=== PATIENT | female | born 1960 | race Caucasian/White ===

== ENCOUNTER 2019-09-05 11:29 | Emergency (ER) | payer OTHER ==
[~2019-09-05] VITALS: Ht 170.2 cm; Wt 141.1 kg
--- NOTE | 2019-09-05 11:35 | NUR ---
MATILDA SMITH FRM FOUR SEASONS C/O DIFFICULT TO AROUSE AND WEAK SINCE THIS MORNING, TO ER BED 8, HOOKED TO [employer]INE[employer] MAIN LINE AND POX, CHANGED TO HOSP GOWN, WARM BLANKET PROVIDED. AWAITING MD LUX.
--- NOTE | 2019-09-05 12:30 | NUR ---
DR DENTON AT BEDSIDE
[2019-09-05 12:45] LABS: BASOPHILS % (AUTO) 0.1 % (0.0-2.0); EOSINOPHILS % (AUTO) 0.5 % (0.0-6.0); HEMATOCRIT 28 % (33-45); HEMOGLOBIN 8.9 g/dL (11.5-14.8); LYMPHOCYTES % (AUTO) 4.4 % (20.0-44.0); MEAN CORPUSCULAR HGB CONC 32 g/dl (31.0-36.0); MEAN CORPUSCULAR VOLUME 91 fL (82-100); MONOCYTES # (AUTO) 0.6 /CMM (0.1-1.30); MONOCYTES % (AUTO) 2.8 % (2.0-12.0); NEUTROPHILS # (AUTO) 20.1 /CMM (1.8-8.9); NEUTROPHILS % (AUTO) 92.2 % (43.0-81.0); PLATELET COUNT (AUTO) 275 /CMM (150-450); RED BLOOD CELL COUNT(AUTO) 3.09 MIL/uL (4.0-5.2); WHITE BLOOD COUNT (AUTO) 21.8 K/uL (4.3-11.0)
[2019-09-05 12:56] LABS: ALBUMIN 2.3 g/dL (3.4-5.0); BILIRUBIN,DIRECT 0.5 mg/dL (0.0-0.2); BILIRUBIN,TOTAL 0.7 mg/dL (0.2-1.0); CALCIUM, SERUM 9.1 mg/dL (8.5-10.1); CREATININE 4.3 mg/dL (0.6-1.3); POTASSIUM 4.6 mmol/L (3.5-5.1); TOTAL PROTEIN, SERUM 6.7 g/dL (6.4-8.2)
[2019-09-05] MEDS ORDERED: IV NS 0.9% 1,000 ML BAG IV ONE (13:00)
--- NOTE | 2019-09-05 13:03 | NUR ---
URINE SAMPLE COLLECTED VIA STRAIGHT CATHETER, SAMPLE SENT TO LAB
--- NOTE | 2019-09-05 13:16 | NUR ---
CARLOS WILLARD CALLED FOR STATUS OF PT. WANTS CLINICALS FAXED TO [phone]. MONTSE PHONE NUMBER [phone].
[2019-09-05 13:32] LABS: APPEARANCE,URINE Clear (CLEAR); BILIRUBIN,URINE Negative (NEGATIVE); BLOOD, URINE Trace-lysed Ery/uL (NEGATIVE); COLOR,URINE Yellow (YELLOW); KETONES,URINE Negative (NEGATIVE); LEUKOCYTE ESTERASE ,URINE Moderate (NEGATIVE); NITRITE, URINE Negative (NEGATIVE); PH,URINE 5.5 (5.0-8.0); PROTEIN,URINE 100 mg/dl (NEGATIVE); UGLUCOSE Negative (NEGATIVE); UROBILINOGEN,URINE 0.2 EU/dL (0.2)
[2019-09-05 13:33] LABS: BACTERIA,URINE None seen /HPF (None Seen); RBC,URINE 0-2 /HPF (0-2); SQUAMOUS EPITHELIAL CELL,UR Few /HPF (None Seen); WBC,URINE 0-2 /HPF (0-3)
--- NOTE | 2019-09-05 13:49 | NUR ---
CARLOS WILLARD CALLED ASKING WHAT TYPE OF TRANPORT WAS NEEDED FOR PT. WENT WITH ALS. CARLOS WILL CALL BACK WITH DOCTOR FOR PEER TO PEER REPORT.
[2019-09-05] MEDS ORDERED: PIPERACILLIN /TAZOBACTAM 3.375 G in IV D5W 50 ML IV ONE (14:30)
[2019-09-05] MEDS ORDERED: PIPERACILLIN /TAZOBACTAM 3.375 G VIAL IV ONE (14:45)
[2019-09-05] MEDS ORDERED: ASCO500C16 PO (14:49)
[2019-09-05] MEDS ORDERED: ACID1TAB12 PO (14:49)
[2019-09-05] MEDS ORDERED: LEVO25TA7 PO (14:49)
[2019-09-05] MEDS ORDERED: FENO145T21 PO (14:49)
[2019-09-05] MEDS ORDERED: METO25TA3 PO (14:49)
[2019-09-05] MEDS ORDERED: MULT-439 PO (14:49)
[2019-09-05] MEDS ORDERED: FLUT16SP16 NS (14:49)
[2019-09-05] MEDS ORDERED: ERGO500040 PO (14:49)
[2019-09-05] MEDS ORDERED: SENN-168 PO (14:49)
[2019-09-05] MEDS ORDERED: ASPI-605 PO (14:49)
[2019-09-05] MEDS ORDERED: AMIN887L PO (14:49)
[2019-09-05] MEDS ORDERED: FERR325T23 BC (14:49)
[2019-09-05] MEDS ORDERED: ACET325T53 PO ×2 (14:49)
[2019-09-05] MEDS ORDERED: INSU100I26 SQ (14:49)
[2019-09-05] MEDS ORDERED: TYL2T PO (14:49)
[2019-09-05] MEDS ORDERED: HYDR-4077 PO (14:49)
[2019-09-05] MEDS ORDERED: INSU100V36 SQ (14:49)
[2019-09-05] MEDS ORDERED: NITR0.4T48 SL (14:49)
[2019-09-05] MEDS ORDERED: BISA10SU61 RC (14:49)
[2019-09-05] MEDS ORDERED: EMPA10TA PO (14:49)
[2019-09-05] MEDS ORDERED: BUME1TAB8 PO (14:49)
[2019-09-05] MEDS ORDERED: SODI45SP6 NS (14:49)
[2019-09-05] MEDS ORDERED: GABA-534 PO (14:49)
[2019-09-05] MEDS ORDERED: MECL-159 PO (14:49)
[2019-09-05] MEDS ORDERED: AMIO200T4 PO (14:49)
[2019-09-05] MEDS ORDERED: ACET1TAB17 PO (14:49)
--- NOTE | 2019-09-05 14:56 | NUR ---
FOLLOWED UP WITH MONTSE LOPEZ. JUST WAITING ON A BED ASSIGNMENT AT [facility].
--- NOTE | 2019-09-05 15:35 | NUR ---
CARLOS WILLARD FROM [facility] CALLED. PT WILL BE GOING TO [facility] BED 202-2 NUMBER FOR REPORT IS [phone]. LAURI IS THE NURSE. ALS AMBULANCE WILL BE ORDERED. MONTSE WILL CALL BACK WITH ETA.
--- NOTE | 2019-09-05 16:04 | NUR ---
REPORT GIVEN TO LAURI MARSHALL OF [facility].
--- NOTE | 2019-09-05 16:09 | NUR ---
CARLOS WILLARD FROM [facility] CALLED. ETA FOR ALS AMBULANCE IS 90 MINUTES.
--- NOTE | 2019-09-05 16:34 | NUR ---
LINED CHANGED AND CLEANED PT
[2019-09-05 18:30] VITALS: BP 152/66
--- NOTE | 2019-09-05 18:33 | NUR ---
Patient picked up by [facility] unit 24 in stable condition. patient will be brought to [facility]. documents and CD handed to EMT. at bedside.
== END 2019-09-05 18:38 | disposition short-term general hospital (02) ==
LOC: ER 11:32
DX: D72.829 Elevated white blood cell count, unspecified (principal); E86.0 Dehydration; R19.7 Diarrhea, unspecified; N17.9 Acute kidney failure, unspecified; E11.22 Type 2 diabetes mellitus with diabetic chronic kidney disease; N18.9 Chronic kidney disease, unspecified; I50.9 Heart failure, unspecified; J44.9 Chronic obstructive pulmonary disease, unspecified; E66.01 Morbid (severe) obesity due to excess calories; Z68.42 Body mass index [BMI] 45.0-49.9, adult; Z89.511 Acquired absence of right leg below knee; Z89.612 Acquired absence of left leg above knee; Z79.899 Other long term (current) drug therapy; Z79.4 Long term (current) use of insulin; Z79.82 Long term (current) use of aspirin
CPT/HCPCS: 36415; 71045; 80048; 80076; 81001; 83605; 83690; 84145; 84484; 85025; 87040 ×2; 93005; 96361; 96365; 99285; J2543 ×2; J7030; J7060; 81000-TC

== ENCOUNTER 2022-03-13 17:05 | Emergency (ER) | payer MEDICARE, OTHER ==
[~2022-03-13] VITALS: Ht 165.1 cm; Wt 121.1 kg
[~2022-03-13 17:05] MED LIST: ACET1TAB17 PO; ACET325T53 PO; ACID1TAB12 PO; AMIN887L PO; AMIO200T5 PO; ASCO500C17 PO; ASPI-605 PO; BISA10SU61 RC; BUME1TAB8 PO; EMPA10TA PO; ERGO500040 PO; FENO145T21 PO; FERR325T23 BC; FLUT16SP16 NS; GABA-534 PO; HYDR-4077 PO; INSU100I26 SQ; INSU100V36 SQ; LEVO25TA7 PO; MECL-159 PO; METO25TA3 PO; MULT-439 PO; NITR0.4T48 SL; SENN-261 PO; SODI45SP6 NS; TYL2T PO
--- NOTE | 2022-03-13 17:15 | NUR ---
RECEIVED PT 61 YRS FEMALE CAME FROM HOME BY GUILLERMO C/O BLEEDING ON AV SOFIA AFTER COMPLETEDHD at home today lt upper arm dressing intact and dry dressing intact and dry
--- NOTE | 2022-03-13 17:20 | NUR ---
AMPOTATION NINFA AND RBRK
--- NOTE | 2022-03-13 17:30 | NUR ---
SEEN BY PROVIDER
--- NOTE | 2022-03-13 17:45 | NUR ---
INSERTED ANGO CATHETER G 20 ON RT HAND BLOOD DROW AND SENT TO LAB
[2022-03-13 18:17] LABS: BASOPHILS # (AUTO) 0.1 K/uL (0.0-0.2); BASOPHILS % (AUTO) 0.9 % (0.0-2.0); EOSINOPHILS % (AUTO) 1.6 % (0.0-6.0); HEMATOCRIT 33 % (33-45); LYMPHOCYTES # (AUTO) 1.3 K/uL (0.8-4.8); LYMPHOCYTES % (AUTO) 14.7 % (20.0-44.0); MEAN CORPUSCULAR HGB CONC 33 g/dl (31.0-36.0); MEAN CORPUSCULAR VOLUME 95 fL (82-100); MONOCYTES # (AUTO) 0.5 K/uL (0.1-1.30); NEUTROPHILS # (AUTO) 6.8 K/uL (1.8-8.9); NEUTROPHILS % (AUTO) 76.8 % (43.0-81.0); PLATELET COUNT (AUTO) 193 K/uL (150-450); RED BLOOD CELL COUNT(AUTO) 3.53 MIL/uL (4.0-5.2); WHITE BLOOD COUNT (AUTO) 8.8 K/uL (4.3-11.0)
[2022-03-13 18:38] LABS: CALCIUM, SERUM 7.7 mg/dL (8.5-10.1); CREATININE 2.7 mg/dL (0.6-1.3); POTASSIUM 4.1 mmol/L (3.5-5.1)
--- NOTE | 2022-03-13 19:18 | NUR ---
NO ACTIVE BLEEDING IN A.V FISTULA GOOD BRITE
--- NOTE | 2022-03-13 19:38 | NUR ---
HAND OFF UNIQUE MARSHALL
--- NOTE | 2022-03-13 19:38 | NUR ---
[facility] ETA:45 MIN
--- NOTE | 2022-03-13 19:50 | NUR ---
IV removed. Catheter intact and site benign. Pressure and 4x4 applied to site. No bleeding noted.
--- NOTE | 2022-03-13 19:58 | NUR ---
PT'S ADDRESS: [id number] [facility] [id number]
--- NOTE | 2022-03-13 20:15 | NUR ---
IV removed. Catheter intact and site benign. Pressure and 4x4 applied to site. No bleeding noted.Patient discharged to home in stable condition. Written and verbal after care instructions given. Patient verbalizes understanding of instruction.
[2022-03-13 20:19] VITALS: BP 110/60
== END 2022-03-13 20:19 | disposition home or self-care (01) ==
LOC: ER 17:07
DX: T82.838A Hemorrhage due to vascular prosthetic devices, implants and grafts, initial encounter (principal); E11.22 Type 2 diabetes mellitus with diabetic chronic kidney disease; N18.9 Chronic kidney disease, unspecified; J44.9 Chronic obstructive pulmonary disease, unspecified; I73.9 Peripheral vascular disease, unspecified
CPT/HCPCS: 36415; 71045-TC; 80048-TC; 85025-TC; 85730-TC; 86850-TC